=== PATIENT | female | born 1950 | race Caucasian/White ===

== ENCOUNTER 2021-12-04 07:48 | Day surgery (SDC) | payer OTHER, MEDICARE ==
[2021-11-29 18:13] VITALS: BMI 35.2
[2021-12-04 08:07] VITALS: RESP 18
[2021-12-04] MEDS ORDERED: LIDOCAINE HCL/PF 2% SDV 5ML VIAL ONE (09:07)
[2021-12-04] MEDS ORDERED: PROPOFOL 80 ML ONE (09:07)
[2021-12-04 09:32] VITALS: PULSE 83; TEMP 96.7
[2021-12-04 10:11] VITALS: BP 115/65
== END 2021-12-04 10:20 | disposition home or self-care (01) ==
LOC: FASU-ENDO 07:48
PROVIDERS: ATTEND Internal Medicine Gastroenterology
PROC: 0DJD8ZZ Inspection of Lower Intestinal Tract, Via Natural or Artificial Opening Endoscopic (ICD-10-PCS; principal; 2021-12-04 09:02)
DX: Z12.11 Encounter for screening for malignant neoplasm of colon (principal); K57.30 Diverticulosis of large intestine without perforation or abscess without bleeding; K64.1 Second degree hemorrhoids; K64.8 Other hemorrhoids